=== PATIENT | female | born 1940 | race Caucasian/White ===

== ENCOUNTER → 2017-06-08 | Outpatient (CLI) | payer MEDICARE ==
[~2017-06-08] MED LIST: ALBU8.5H5; ALBU8.5H8 INH; AMIT50TA PO; ASPI-650 PO; ATOR40TA78 PO; ATOR80TA PO; Auryxia PO; CHOL200040 PO; CHOL200074 PO; CINA30TA2 PO; CINA90TA PO; CITA20TA9 PO; CYAN50005; DIPH25CA61 PO; ESTR0.45; FERR210T PO; HYDR4TAB PO; LACT1CAP35 PO; LISI-167 PO; LISI1TAB7; METF10002; METF500T4 PO; MORPHINE; MULT-115 PO; MULT1TAB9; OCTR20KI IM; OCTR50AM IV; OMEP-110; OXYC-302 PO; POLY17PO5 PO; TIOT18CA INH; VENL75TA2 PO; magnesium PO
[2017-06-08 10:29] LABS: INTERNATIONAL NORMALIZED RATIO 1.11 (0.93-1.1); PROTHROMBIN TIME 11.5 Seconds (9.6-11.5)
== END | disposition home or self-care (01) ==
LOC: STAR 09:07
PROVIDERS: ATTEND Surgery Vascular Surgery
DX: Z01.818 Encounter for other preprocedural examination (principal); N18.6 End stage renal disease
CPT/HCPCS: 36415; 85610; 85730; 93005

== ENCOUNTER 2017-06-12 09:33 | Day surgery (SDC) | payer MEDICARE ==
[~2017-06-12] VITALS: Ht 160 cm; Wt 69.9 kg
[~2017-06-12 09:33] MED LIST changes: +HEPARIN 1,000 UNITS/ML, 10ML ONE; +PROTAMINE SULFATE 10 MG/ML, 5ML ONE
[2017-06-12] MEDS ORDERED: SODIUM CHLORIDE 0.9% 1,000 ML IV SCH (11:46)
[2017-06-12] MEDS ORDERED: LIDOCAINE-MPF 1%, 2ML INFIL ONE (12:00)
[2017-06-12 12:01] VITALS: BP 190/78
[2017-06-12] MEDS ORDERED: DEXTROSE 50%, 50ML VIAL IVPush ONE (13:00)
[2017-06-12] MEDS ORDERED: PAIN PUMP IV (13:06)
[2017-06-12] MEDS ORDERED: DEXTROSE 50%, 50ML SYRINGE IVPush ONE (13:30)
[2017-06-12] MEDS ORDERED: MIDAZOLAM 1 MG/ML, 2ML ONE (14:25)
[2017-06-12] MEDS ORDERED: FENTANYL PF 250 MCG/5ML ONE (14:25)
[2017-06-12] MEDS ORDERED: PROPOFOL 10 MG/ML, 20ML ONE (14:26)
[2017-06-12] MEDS ORDERED: SODIUM CHLORIDE 0.9% PF 10ML ONE (14:27)
[2017-06-12] MEDS ORDERED: CEFAZOLIN 1,000 MG ONE ×2 (14:27)
[2017-06-12] MEDS ORDERED: ONDANSETRON 2MG/ML, 2ML ONE (14:29)
[2017-06-12] MEDS ORDERED: FENTANYL PF 100 MCG/2ML IV PRN (15:30)
[2017-06-12] MEDS ORDERED: LABETALOL 5MG/ML, 20ML IV PRN (15:30)
[2017-06-12] MEDS ORDERED: OXYcodone 5 MG/5 ML ORAL.SOL UDC PO PRN (15:30)
[2017-06-12] MEDS ORDERED: HYDROmorphone 1 MG/ML, 1ML IV PRN (15:30)
[2017-06-12] MEDS ORDERED: hydrALAzine 20 MG/ML, 1ML IV PRN (15:30)
[2017-06-12] MEDS ORDERED: PROMETHAZINE 12.5 MG SUPP PR PRN (15:30)
[2017-06-12] MEDS ORDERED: ONDANSETRON 2MG/ML, 2ML IVPush PRN (15:30)
[2017-06-12] MEDS ORDERED: morphine SULFATE 10 MG/ML, 1ML IV PRN (15:30)
[2017-06-12] MEDS ORDERED: PROMETHAZINE 25 MG/ML, 1ML IV PRN (15:30)
== END 2017-06-12 17:35 ==
LOC: OUT 09:33
PROVIDERS: ATTEND Surgery Vascular Surgery
DX: E11.22 Type 2 diabetes mellitus with diabetic chronic kidney disease (principal); I12.0 Hypertensive chronic kidney disease with stage 5 chronic kidney disease or end stage renal disease; N18.6 End stage renal disease; G47.33 Obstructive sleep apnea (adult) (pediatric); Z88.8 Allergy status to other drugs, medicaments and biological substances
CPT/HCPCS: 36415; 36821; 80047; 82962; J0690; J1644; J2250; J2405; J2704; J3010; 93005; J2720